=== PATIENT | female | born 1990 | race Caucasian/White ===

== ENCOUNTER 2024-04-13 12:35 | Emergency (ER) | payer MEDICAID ==
[~2024-04-13] VITALS: Ht 294.6 cm; Wt 56.7 kg
[2024-04-13] MEDS ORDERED: methylPREDNISolone SOD SUCC 125 MG/2ML VIAL ONE (13:13)
[2024-04-13] MEDS: IV NS 0.9% 1,000 ML BAG IV ONE (13:15)
[2024-04-13] MEDS: methylPREDNISolone SOD SUCC 125 MG/2ML VIAL IV ONE (13:18)
[2024-04-13 13:21] LABS: BASOPHILS % (AUTO) 0.4 % (0.0-2.0); EOSINOPHILS # (AUTO) 0.1 K/uL (0.0-0.7); EOSINOPHILS % (AUTO) 1.8 % (0.0-6.0); HEMATOCRIT 35 % (33-45); HEMOGLOBIN 12.1 g/dL (11.5-14.8); LYMPHOCYTES # (AUTO) 1.6 K/uL (0.8-4.8); LYMPHOCYTES % (AUTO) 21.9 % (20.0-44.0); MEAN CORPUSCULAR HEMOGLOBIN 32 PG (26.0-33.0); MEAN CORPUSCULAR HGB CONC 34 g/dl (31.0-36.0); MEAN CORPUSCULAR VOLUME 93 fL (82-100); MONOCYTES # (AUTO) 0.6 K/uL (0.1-1.30); MONOCYTES % (AUTO) 8.1 % (2.0-12.0); NEUTROPHILS % (AUTO) 67.8 % (43.0-81.0); PLATELET COUNT (AUTO) 374 K/uL (150-450); RED BLOOD CELL COUNT(AUTO) 3.78 MIL/uL (4.0-5.2); RED CELL DISTRIBUTION WIDTH 12.3 % (11.5-15.0); WHITE BLOOD COUNT (AUTO) 7.4 K/uL (4.3-11.0)
[2024-04-13] MEDS ORDERED: IOHEXOL-300 100 ML VIAL IV ONE (13:29)
[2024-04-13] MEDS ORDERED: IV NS 0.9% 250 ML IV ONE (13:29)
[2024-04-13 13:39] LABS: CALCIUM, SERUM 9.6 mg/dL (8.5-10.1); CREATININE 0.8 mg/dL (0.6-1.3); POTASSIUM 3.5 mmol/L (3.5-5.1)
[2024-04-13 13:44] LABS: ALBUMIN 3.3 g/dL (3.4-5.0); BILIRUBIN,DIRECT 0.1 mg/dL (0.0-0.2); BILIRUBIN,TOTAL 0.4 mg/dL (0.2-1.0); TOTAL PROTEIN, SERUM 7.8 g/dL (6.4-8.2)
[2024-04-13 13:47] LABS: LACTIC ACID 1.4 mmol/L (0.4-2.0)
[2024-04-13 16:29] VITALS: BP 113/67; TEMP 208.8; O2SAT 98
== END 2024-04-13 16:30 | disposition home or self-care (01) ==
LOC: ER 12:47
DX: R55 Syncope and collapse (principal); R10.10 Upper abdominal pain, unspecified; K92.1 Melena; R53.1 Weakness
CPT/HCPCS: 99285; 74177; 96374; 96361; 85025; 80048; 83605; 83690; 80076; 36415; J2919; J7030; J7050; Q9967

== ENCOUNTER 2025-09-01 15:02 | Emergency (ER) | payer MEDICAID ==
[~2025-09-01] VITALS: Ht 165.1 cm; Wt 55.3 kg
[2025-09-01] MEDS: IV NS 0.9% 1,000 ML BAG IV ONE (15:50)
[2025-09-01 16:09] LABS: PLATELET COUNT (AUTO) 325 K/uL (150-450); RED BLOOD CELL COUNT(AUTO) 4.22 MIL/uL (4.0-5.2); RED CELL DISTRIBUTION WIDTH 12.2 % (11.5-15.0); WHITE BLOOD COUNT (AUTO) 7.2 K/uL (4.3-11.0)
[2025-09-01 16:22] LABS: APPEARANCE,URINE CLEAR (CLEAR); BLOOD, URINE NEGATIVE Ery/uL (NEGATIVE); LEUKOCYTE ESTERASE ,URINE NEGATIVE (NEGATIVE); NITRITE, URINE NEGATIVE (NEGATIVE); UGLUCOSE NEGATIVE (NEGATIVE)
[2025-09-01 16:23] LABS: PREGNANCY TEST URINE QUAL NEGATIVE (NEGATIVE)
[2025-09-01 16:29] LABS: CALCIUM, SERUM 9.0 mg/dL (8.5-10.1); CREATININE 0.8 mg/dL (0.6-1.3); SODIUM SERUM 140 mmol/L (136-145); UREA NITROGEN, BLOOD 10 mg/dL (7-18)
[2025-09-01 16:34] LABS: ASPARTATE AMINOTRANSFERASE 21 U/L (15-37); ASPARTATE AMINOTRANSFERASE 21.0 U/L (15-37); INR 1.06 (0.91-1.10); TOTAL PROTEIN, SERUM 7.8 g/dL (6.4-8.2)
[2025-09-01] MEDS ORDERED: PRED50TA PO (16:47)
[2025-09-01 17:28] VITALS: BP 100/62; TEMP 98.3; O2SAT 100
== END 2025-09-01 17:37 | disposition home or self-care (01) ==
LOC: ER 15:15
DX: K92.1 Melena (principal); K51.911 Ulcerative colitis, unspecified with rectal bleeding; Z79.52 Long term (current) use of systemic steroids; R42 Dizziness and giddiness
CPT/HCPCS: 99284; 96374; 96361; 93005; 85025; 83690; 84703; 85652; 81003; 36415; 80053; 85730; 86850; 86140; J2919; J7030; 80076-TC